=== PATIENT | male | born 1995 | race Caucasian/White ===

== ENCOUNTER 2019-02-12 15:58 | Emergency (ER) | payer MEDICAID ==
[~2019-02-12] VITALS: Wt 60.0 kg
[~2019-02-12 15:58] MED LIST: CPR3OO3.5 BOTH EYES
[2019-02-12 16:01] VITALS: BP 139/79
[2019-02-12] MEDS ORDERED: FLUORESCEIN STRIP RIGHT EYE ONE (18:30)
[2019-02-12 18:53] VITALS: PULSE 77; RESP 18
--- NOTE | 2019-02-15 13:35 | ERD ---
ER Documentation Chief Complaint Chief Complaint RIGHT POSSIBLE FOREIGH BODY HPI 23-year-old male presents to the emergency department complaining of possible foreign body to his right eye. He states he was working with some trash and he felt something go into his right eye yesterday. He reports constant irritation. He reports some mild whitish discharge. He denies any changes in his vision, diplopia, severe pain, fevers, chills, or other symptoms at this time. ROS All systems reviewed and are negative except as per history of present illness. Medications Home Meds Active Scripts Ciprofloxacin Opht* (Ciloxan*) 0.3%-3.5 Opht Oint, 1 APPLIC BOTH EYES TID, #2 BOTTLE Prov:ASHOK WEBBER PA-C 02/12/19 Allergies Allergies: Coded Allergies: No Known Drug Allergies (Verified Allergy, Unknown, 02/12/19) PMhx/Soc Medical and Surgical Hx: pt denies Medical Hx, pt denies Surgical Hx Physical Exam Vitals Vital Signs Date Temp Pulse Resp B/P (MAP) Pulse Ox O2 O2 Flow FiO2 Time Delivery Rate 02/12/19 77 18 99 Room Air 18:53 02/12/19 97.2 79 18 139/79 99 16:01 (99) Physical Exam Const: No acute distress Head: Atraumatic Eyes: Bilateral conjunctival injection. No obvious foreign body. No obvious visual acuity deficits. ENT: Normal External Ears, Nose and Mouth. Neck: Full range of motion. No meningismus. Resp: No respiratory distress. Skin: No petechiae or rashes Back: No midline or flank tenderness Ext: No cyanosis, or edema Neur: Awake and alert Psych: Normal Mood and Affect Results 24 hrs Current Medications Medications Dose Sig/Adrienne Start Time Status Last (Trade) Ordered Route PRN Stop Time Admin Dose Reason Admin Fluorescein 1 strip ONCE ONCE 02/12/19 DC Sodium RIGHT EYE 18:30 02/12/19 ([id number]-P-Irif 18:31 p) Procedures/MDM 23-year-old male presents emergency department with signs and symptoms most consistent with bilateral irritant conjunctivitis. Patient may also have component of bacterial conjunctivitis due to secondary infectious process. Eye Exam w/ Wood's Lamp - bilateral: Visual Acuity: See nursing notes Visual Spear: Intact in all four quadrants bilaterally Lac ducts/glands: No swelling Lids w/ evertion: Normal, no foreign body Conj/[place]: Clear, negative Fluorescein/Ava's Anterior Chamber: Clear Ophthalmologic Assessment: Patient's ocular symptoms have stabilized while they have been evaluated in the department and are appropriate for outpatient work up. No evidence of ruptured globe, retinal detachment, acute angle closure glaucoma, or deep space infection. Plan for 24 hour ophthalmologic follow up. Departure Diagnosis: Primary Impression: Bilateral conjunctivitis Condition: Fair Patient Instructions: Conjunctivitis Caused by Irritation Referrals: [facility] Hours: Fri - Fri 9:00 AM - 5:00 PM Additional Instructions: Specialist:Usted tiene liz condicin mdica que requiere que naomi a un especialista dentro de los prximos 1-2 rivera.POR FAVOR,CON OLSON SEGUIMIENTO DE PRIMARIA PHSICIAN refferal. SI USTED NO TIENE UN MDICO GENERAL Y / O USTED NO PUEDE PAGAR alberto a un mdico,los siguientes garcia RECURSOS sido suministrado a usted. ES OLSON RESPONSABILIDAD PARA SER VISTOS POR EL ESPECIALISTA: OPTHALMOLOGY ASHOK WEBBER PA-C Feb 15, 2019 13:35
== END 2019-02-12 18:55 | disposition home or self-care (01) ==
LOC: FTE 15:58
DX: H10.9 Unspecified conjunctivitis (principal)
CPT/HCPCS: Z7502; Z7610; 99283